=== PATIENT | male | born 1980 | race Caucasian/White ===

== ENCOUNTER → 2017-06-20 | Outpatient (CLI) | payer OTHER | LOC: CAT 10:50 | DX: Z13.6 Encounter for screening for cardiovascular disorders (principal) ==

== ENCOUNTER → 2017-12-18 | Outpatient (CLI) | payer BC, OTHER ==
--- NOTE | ~2017-12-18 | SLE ---
[facility] [address] [place] [address] POLYSOMNOGRAPHY STUDY Name: LINDA LUTHER AMES Room #: REG [facility].#: [id number] Admission: 12/18/17 Attend Phys: Sony Georges MD Discharge: Date of : 78 Report #: [id number] THIS REPORT FOR: //name// CC: Natalie ALVAREZ MD A 37-year-old, height 5 feet 9 inches, weight 200 pounds. Usually goes to bed at 8:30-11, awakens refreshed. Positive history of snoring, no definite daytime somnolence. MEDICATIONS: Include methadone and citalopram. COMMENTS: PAC noted. Total recording time 454 minutes. Total sleep time 375 minutes. Sleep latency 19 minutes, REM latency ____. Sleep stage: 1 -- 14% 2 -- 82% 3 -- 4%. Low oxygen saturation 84%. Periodic limb movement with arousal index was 0 events per sleep hour. Hypopnea 15, 3 obstructive apneas, 38 central apneas, apnea-hypopnea index of 9 events per hour. IMPRESSION: 1. Obstructive sleep apnea/hypopnea, G47.33. 2. Periodic limb movement with arousal index 0 events per sleep hour. 3. Premature atrial contractions noted. SUGGESTIONS: 1. 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 2. Further evaluation into etiology of snoring is recommended. 3. Sleep hygiene measures are recommended. 4. Weight loss and TSH per Dr. Georges. 5. Further evaluation regarding central events is recommended, but may be associated with first night of sleep study. 6. May consider a home sleep study. 7. May consider a CPAP titration night. 8. If signs and symptoms not improved with therapy, further evaluation is recommended. Please do not hesitate to contact me if I may be of further assistance. 9. Medication effect on sleep is recommended. <ELECTRONICALLY SIGNED> By: Natalie Wu MD 01/11/18 1045 [id number] [id number] Natalie Wu MD /nt
== END ==
LOC: SLEEPLAB 11:53
DX: G47.33 Obstructive sleep apnea (adult) (pediatric) (principal)

== ENCOUNTER → 2018-07-17 | Outpatient (CLI) | payer BC, OTHER ==
--- NOTE | ~2018-07-17 | SLE ---
[facility] [place] [address] POLYSOMNOGRAPHY STUDY Name: LINDA LUTHER Room #: REG [facility].#: [id number] Admission: 07/17/18 Attend Phys: Shahid Cordova MD Discharge: Date of : 78 Report #: [id number] THIS REPORT FOR: //name// CC: Shahid Russell MD DATE OF SERVICE: 07/17/2018 SLEEP STUDY ATTENDING PHYSICIAN: Dr. Tez Russell. DATE OF STUDY: 07/17/2018. The patient is 37 years old who weighs 195 pounds and is 69 inches tall with a BMI of 28.8. The patient has a history of sleep apnea and has been on CPAP with intolerance. The patient also has been on chronic methadone treatment. The patient has an [place] score of 14/24. During recent download information, the patient's AHI has remained high up to 16 per hour and ongoing central apneas were suspected. As a result, he was referred back to sleep lab for BiPAP titration study. During the night study, the patient spent 427 minutes in bed and slept for 371 minutes, with a sleep efficiency of 86%. Sleep latency was 4.8 minutes with a REM latency of 106.8 minutes. Overall, sleep architecture showed normal stage 1 sleep, increased stage 2 sleep, normal N3 sleep and reduced REM sleep, which was 12% of the total sleep time. EKG monitoring revealed average heart rate of 45 beats per minute with a maximum of 61 beats per minute. Occasional PACs were observed. PLMS were seen at an index of 4.7 per hour and 0.2 per hour caused EEG arousals. The patient was started on BiPAP at a pressure of 8/4. The patient required a backup rate initially at 6 per minute in the ST mode for persistent central apneas and the rate was eventually increased up to 10 beats per minute. At a final BiPAP pressure of 16/8, the patient slept for 42 minutes. The patient had supine sleep, but no REM sleep. The patient's AHI was reduced to 4 per hour. Oxygen saturation remained above 89%. Prior to this pressure, the patient also had a long REM sleep at 14/6, but no supine sleep was observed and AHI was 2.6 per hour. In my opinion, a BiPAP pressure of 16/8 should be a final therapeutic pressure, even though no REM sleep was observed. IMPRESSION: 1. Sleep apnea diagnosed by previous sleep study, with intolerance to CPAP. [facility] [address] [place] [address] POLYSOMNOGRAPHY STUDY Name: LNIDA LUTHER [id number] Admission: 07/17/18 Attend Phys: Shahid Cordova MD Discharge: Date of : 78 Report #: [id number] 2. No clinically significant periodic limb movements of sleep. RECOMMENDATIONS: 1. BiPAP at 16/8 with a backup rate of 10 / ST mode should be used on a nightly basis. 2. Follow up in 4-6 weeks to assess compliance with BiPAP and to document clinical improvement. 3. Minimize the use of narcotics. This would help minimize patient's central apneas. 4. Caution regarding driving until symptoms of sleep apnea have resolved with the use of BiPAP. 5. Weight loss is advised. <ELECTRONICALLY SIGNED> By: Shahid Cordova MD 07/18/18 1900 1329 1414 Shahid Cordova MD /nt
== END ==
LOC: SLEEPLAB 13:14
DX: G47.33 Obstructive sleep apnea (adult) (pediatric) (principal)

== ENCOUNTER → 2019-12-04 | Outpatient (CLI) | payer OTHER | LOC: CAT 06:35 | DX: Z13.6 Encounter for screening for cardiovascular disorders (principal); E78.00 Pure hypercholesterolemia, unspecified; I25.10 Atherosclerotic heart disease of native coronary artery without angina pectoris ==

== ENCOUNTER → 2021-05-20 | Outpatient (CLI) | payer OTHER | LOC: CAT 14:59 | PROVIDERS: ATTEND Family Medicine | DX: Z13.6 Encounter for screening for cardiovascular disorders (principal); I25.10 Atherosclerotic heart disease of native coronary artery without angina pectoris; E78.00 Pure hypercholesterolemia, unspecified ==

== ENCOUNTER → 2021-06-14 | Outpatient (CLI) | payer OTHER ==
--- NOTE | 2021-06-24 09:52 | SLE ---
[facility] [place] [address] [place] [address] POLYSOMNOGRAPHY STUDY Name: LINDA LUTHER [id number] Admission: 06/14/21 Attend Phys: Shahid Cordova MD Discharge: Date of : 78 Report #: [id number] THIS REPORT FOR: cc: Sony Georges MD, Neal A. MD Khan,Shahid Ashton MD ~ DATE OF SERVICE: 06/14/2021 SLEEP STUDY ATTENDING PHYSICIAN: Dr. Tez Russell The patient is 40 years old who weighs 205 pounds with a BMI of 30. The patient has history of sleep apnea and has been on BiPAP at a pressure of 12 x 6. The patient was noted to have ongoing daytime fatigue and sleepiness. 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 During the night study, the patient spent 458 minutes in bed and slept for 450 minutes with a sleep efficiency of 91%. Sleep latency was 0.4 minutes with a REM latency of 349 minutes. Sleep architecture showed normal stage I sleep, increased stage II sleep, normal slow wave and reduced REM sleep, which was 11% of total sleep time. Her EKG monitoring revealed an average heart rate of 42 beats per minute with a maximum 62 beats per minute. No significant PLMS were observed. The patient was started on BiPAP at a pressure of 12/6. The patient's pressure was increased to eliminate apneas as well as hypopneas. At a pressure of 16/8, increasing central apneas were seen and increased further at a pressure of 18/8. At that time, backup rate of 10 was added. At a final BiPAP pressure of 18/11 with a backup rate of 10, the patient slept for 186 minutes including 23% of the time during REM sleep. The patient had lateral REM sleep. The patient's AHI was reduced to only 0.4 per hour and oxygen saturations remained above 90%. IMPRESSION: 1. Sleep apnea diagnosed by previous sleep study. 2. No clinically significant PLMS. 3. Sinus bradycardia. RECOMMENDATIONS: 1. BiPAP at a pressure of 18/11 with a backup rate of 10 should be used on a nightly basis. It completely eliminated the patient's sleep apnea including the patient's central apneas. [facility] [address] [place] [address] POLYSOMNOGRAPHY STUDY Name: LINDA LUTHER MATTI Room #: REG CLI [facility]#: [id number] Admission: 06/14/21 Attend Phys: Shahid Cordova MD Discharge: Date of : 78 Report #: [id number] 2. Follow up in 4-6 weeks to assess compliance with BiPAP and to document clinical improvement. 3. Weight loss is advised. 4. Avoid BOTTLE WASHER depressants. 5. Cautioned regarding driving until symptoms of sleep apnea resolve with the use of BiPAP. <ELECTRONICALLY SIGNED> By: Shahid Cordova MD 06/24/21951 58 13 Shahid Cordova MD /nt
== END ==
LOC: SLEEPLAB 11:23
PROVIDERS: ATTEND Internal Medicine Critical Care Medicine
DX: Z01.812 Encounter for preprocedural laboratory examination (principal); G47.33 Obstructive sleep apnea (adult) (pediatric); G47.31 Primary central sleep apnea; Z20.822 Contact with and (suspected) exposure to COVID-19